=== PATIENT | female | born 1975 | race Caucasian/White ===

== ENCOUNTER → 2018-11-14 | Outpatient (CLI) | payer BC ==
--- NOTE | 2018-11-15 07:12 | US ---
EXAMINATION TYPE: US kidneys/renal and bladder DATE OF EXAM: 11/14/2018 COMPARISON: NONE CLINICAL HISTORY: N28.1 Renal cyst Lt. Left renal cyst seen on previous exam at different facility EXAM MEASUREMENTS: Right Kidney: 10.1 x 4.0 x 4.3 cm Left Kidney: 10.9 x 4.8 x 4.9 cm Right Kidney: dilated renal pelvis, no masses seen, inferior pole limited by overlying bowel gas Left Kidney: dilated renal pelvis, no masses seen, inferior pole limited by overlying bowel gas Bladder: wnl Bilateral Jets seen: yes No nephrolithiasis is seen. No masses are identified. The urinary bladder is anechoic. Bilateral ureteral jets are seen. IMPRESSION: Mild bilateral hydronephrosis right greater than left.
== END | disposition home or self-care (01) ==
LOC: RADUSWWP 15:53
PROVIDERS: ATTEND Urology
DX: N13.30 Unspecified hydronephrosis (principal)
CPT/HCPCS: 76770

== ENCOUNTER → 2019-04-23 | Outpatient (CLI) | payer OTHER ==
--- NOTE | 2019-04-23 08:32 | US ---
EXAMINATION TYPE: US kidneys/renal and bladder DATE OF EXAM: 04/23/2019 COMPARISON: 11/06/2018 CLINICAL HISTORY: N28.1 Left Renal Cyst. EXAM MEASUREMENTS: Right Kidney: 10.6 x 3.6 x 4.5 cm Left Kidney: 10.9 x 4.4 x 4.2 cm Right Kidney: prominent renal pelvis bilateral Left Kidney: prominent renal pelvis bilateral Bladder: wnl Bilateral Jets seen: Yes There is no evidence for hydronephrosis at this point in time. No nephrolithiasis is seen. No jessica s are identified. The urinary bladder is anechoic. Bilateral ureteral jets are seen. IMPRESSION: Pelviectasis bilaterally without discrete hydronephrosis. No discrete renal cyst is seen of either kidney. No suspicious mass. If there is further concern for renal mass three-phase CT abdom en could be performed.
== END | disposition home or self-care (01) ==
LOC: RADUSWWP 07:34
PROVIDERS: ATTEND Urology
DX: N13.30 Unspecified hydronephrosis (principal)
CPT/HCPCS: 76770

== ENCOUNTER → 2020-05-08 | Outpatient (CLI) | payer OTHER ==
--- NOTE | 2020-05-08 15:27 | US ---
EXAMINATION TYPE: US kidneys/renal and bladder DATE OF EXAM: 05/08/2020 COMPARISON: Prior ultrasound dated 04/23/2019 CLINICAL HISTORY: N28.1 Cyst of kidney, acquired. h/o renal pelvis fullness with unknown etiology, no t symptomatic EXAM MEASUREMENTS: Right Kidney: 10.1 x 4.8 x 4.4 cm Left Kidney: 10.8 x 4.4 x 6.3 cm Right Kidney: Extrarenal pelvis is again seen Left Kidney: Extrarenal pelvis is again seen Bladder: wnl Bilateral Jets seen: yes There is no evidence for hydronephrosis at this point in time. No nephrolithiasis is seen. No jessica s are identified. The urinary bladder is anechoic. Bilateral ureteral jets are seen. IMPRESSION: Stable unremarkable renal ultrasound
== END | disposition home or self-care (01) ==
LOC: RADUSWWP 13:51
PROVIDERS: ATTEND Urology
DX: N28.1 Cyst of kidney, acquired (principal)
CPT/HCPCS: 76770

== ENCOUNTER → 2021-12-11 | Outpatient (CLI) | payer OTHER ==
--- NOTE | 2021-12-12 03:28 | MR ---
EXAMINATION TYPE: MR brain wo/w con DATE OF EXAM: 12/11/2021 COMPARISON: HISTORY: Cerebral cysts. CONTRAST: Standard multiplanar, multisequence MRI departmental protocol images were obtained without contrast a nd with 5 mL intravenous Gadavist gadolinium contrast. The diffusion images show no evidence of acute infarct. Ventricles have fairly normal size. There is no mass effect or midline shift. No sign of intracranial hemorrhage. The king-white matter structures have fairly normal signal pattern. No evidence of cerebral edema. Corpus callosum is intact but sell a turcica is intact. No evidence of orbital mass. The contrast images show no pathologic enhancement. There is normal enhancement of the venous sinuses . No evidence of posterior fossa mass. IMPRESSION: Normal MRI scan of the brain.
== END | disposition home or self-care (01) ==
LOC: RADMRIMAIN 20:37
PROVIDERS: ATTEND Internal Medicine
DX: G93.0 Cerebral cysts (principal)
CPT/HCPCS: 70553; A9585

== ENCOUNTER → 2023-02-19 | Outpatient (CLI) | payer OTHER ==
--- NOTE | 2023-02-19 20:23 | MR ---
EXAMINATION TYPE: MR cervical spine wo con DATE OF EXAM: 02/19/2023 INDICATION: Patient age: Female; 47 years old; Reason for study: M54.2 CERVICALGIA. Neck pain into right shoulder COMPARISON: None. TECHNIQUE: Multi planar, multi sequence imaging was performed utilizing: T1-weighted, T2-weighted, an d turbo inversion recovery imaging of the cervical spine. IV Contrast: None FINDINGS: Motion limits evaluation. Alignment: The cervical vertebral bodies have preserved heights. Alignment is within normal limits gi adriana patient positioning. Bones: Scattered Modic endplate changes with osteophytes and disc space narrowing. Multilevel degener ative disc disease is noted and most pronounced at the C5-C7 vertebral levels. Cord: The spinal cord is unremarkable with regards to their signal intensity and morphology. Discs: Multilevel disc desiccation is present. C2-C3: No significant disc pathology. The spinal canal is patent. No neural foraminal stenosis. C3-C4: No significant disc pathology. The spinal canal is patent. No neural foraminal stenosis. C4-C5: No significant disc pathology. The spinal canal is patent. No neural foraminal stenosis. C5-C6: No significant disc pathology. The spinal canal is patent. No neural foraminal stenosis. C6-C7: A disc osteophyte complex is present with mild spinal canal stenosis. Bilateral facet and unc overtebral joint arthropathy are present with mild bilateral neural foraminal stenosis. C7-T1: No significant disc pathology. The spinal canal is patent. No neural foraminal stenosis. Other: None. IMPRESSION: 1. No evidence for disc herniation or significant spinal canal stenosis. 2. Mild disc degeneration with associated osteoarthritic changes worse at C6-C7 with mild spinal leonidas l stenosis..
== END | disposition home or self-care (01) ==
LOC: RADMRIMAIN 13:28
PROVIDERS: ATTEND Psychiatry & Neurology Neurology
DX: M50.323 Other cervical disc degeneration at C6-C7 level (principal); M47.812 Spondylosis without myelopathy or radiculopathy, cervical region; M48.02 Spinal stenosis, cervical region
CPT/HCPCS: 72141